=== PATIENT | female | born 1985 | race Two or more races ===

== ENCOUNTER 2020-12-25 08:13 | Day surgery (SDC) | payer OTHER ==
[~2020-12-25] VITALS: Ht 154.9 cm; Wt 97.0 kg
[~2020-12-25 08:13] MED LIST: HYDROmorphone 2 MG/ML VIAL IVP PRN; IV RINGERS,LACTATED 1000ML 1,000 ML IV SCH; PROCHLORPERAZINE 10 MG/2 ML VIAL. IVP PRN; THRIVE VITAMINS PO; fentaNYL PF VIAL 100 MCG/2 ML VIAL IVP PRN
[2020-12-25] MEDS ORDERED: PROPOFOL 10 MG/ML (20ML) VIAL. IV ONE ×2 (08:27→09:42)
[2020-12-25] MEDS ORDERED: KETOROLAC 30 MG/ML VIAL. ONE (08:27)
[2020-12-25] MEDS ORDERED: LIDOCAINE 1% PF 5 ML VIAL. ONE (08:27)
[2020-12-25] MEDS ORDERED: ONDANSETRON PF 4 MG/2 ML VIAL. ONE (08:27)
[2020-12-25] MEDS ORDERED: DEXAMETHASONE SOD PHOS 4 MG/ML VIAL ONE (08:27)
[2020-12-25] MEDS ORDERED: ROCURONIUM 50 MG/5 ML VIAL. ONE (08:28)
[2020-12-25] MEDS ORDERED: GLYCOPYRROLATE 1 MG/5 ML VIAL. ONE (08:28)
[2020-12-25] MEDS ORDERED: MIDAZOLAM HCL/PF 2 MG/2 ML VIAL. ONE (08:28)
[2020-12-25] MEDS ORDERED: fentaNYL PF VIAL 100 MCG/2 ML VIAL ONE (08:28)
[2020-12-25] MEDS ORDERED: NEOSTIGMINE METHYLSULFATE 5 MG/5 ML SYRINGE. ONE (08:28)
[2020-12-25 08:42] VITALS: BP 133/68
[2020-12-25] MEDS ORDERED: BUPIVACAINE-EPI 0.25%-1:200000 MPF 30 ML VIAL. ONE (08:53)
--- NOTE | 2020-12-25 09:55 | PDOC ---
BRIEF OPERATIVE NOTE Date: Dec 25, 2020 Pre-Op Diagnosis Sterilization Post-Op Diagnosis Same Procedure Performed [facility] BTL via deysi. salpingectomy Surgeon Dr. Peters Production Officer [employer]: Kristina Anesthesia Type: General Blood Loss 5 ml Specimens Obtained deysi. fallopian tubes Findings nml size uterus, nml fallopian tubes and ovaries deysi. Complications none Operative Note see dictation EVON PETERS Jr, MD Dec 25, 2020 09:55
[2020-12-25] MEDS ORDERED: OXYC1TAB15 PO (09:57)
--- NOTE | 2020-12-25 09:58 | DISCH ---
DISCHARGE INSTRUCTIONS Condition on Discharge Condition on Discharge: Stable Activity After Discharge Activity Instructions for Disc: Activity as tolerated Lifting Instructions after Dis: No heavy lifting Driving Instructions after Dis: Do not drive today Diet after Discharge Diet after Discharge: Regular Contacting the DRJose Rafael after DC Call your doctor for: Concerns you may have Follow-Up Follow up with: Dr. Peters in 1 week. EVON PETERS Jr, MD Dec 25, 2020 09:58
[2020-12-25] MEDS ORDERED: PROCHLORPERAZINE 10 MG/2 ML VIAL. ONE (10:05)
--- NOTE | 2020-12-25 10:08 | OP ---
DATE OF SURGERY: 12/25/2020 PREOPERATIVE DIAGNOSIS: Sterilization. POSTOPERATIVE DIAGNOSIS: Sterilization. PROCEDURE: Laparoscopic bilateral tubal ligation via bilateral salpingectomy. SURGEON: Kings Peters MD. DIPPER CLOCK [employer] WATCH HANDS: Kristina. ANESTHESIA: GETA. ESTIMATED BLOOD LOSS: 5 mL. COMPLICATIONS: None. FINDINGS: Normal size uterus, normal fallopian tubes and ovaries bilaterally. SUMMARY: A 35-year-old female who desired permanent sterilization. She was counseled on the risks, benefits and expectations as well as failure rate of bilateral tubal ligation and voiced clear understanding to proceed. DESCRIPTION OF PROCEDURE: The patient was taken to surgery suite and placed in dorsal lithotomy position, was prepped with Betadine solution for vaginal prep and ChloraPrep for abdominal prep. After adequate anesthesia, bivalve speculum was placed vaginally. Anterior lip of the cervix grasped with single tooth tenaculum. Uterine acorn manipulator was then placed. The bivalve speculum was removed. Attention was now placed on the abdomen where a small transverse skin incision was made just below the umbilicus. The Veress needle was then placed through the infraumbilical incision site. The abdomen was allowed to insufflate up to 1-1/2 liters CO2 gas. Veress needle was then removed. A 5 mm trocar was placed. The scope was positioned. The uterus was normal size, normal fallopian tubes and ovaries bilaterally. Two additional incisions were made in the left lower quadrant in which a 5 mm trocar and an 8 mm trocar was placed. With aid of Valdez graspers and EnSeal device, the right fallopian tube was dissected away from the right adnexa. Same process took place with left adnexa. The pedicles were both hemostatic. The trocars were then removed under direct visualization. The abdomen was allowed to deflate as much as possible along with mechanical manipulation. The 3 skin incisions were reapproximated using 4-0 Vicryl suture in subcuticular manner. A 0.25% Marcaine with epinephrine was injected at each incision site. Uterine acorn manipulator and single tooth tenaculum were then removed. The patient tolerated the procedure well and was taken to recovery room in stable condition. Sponge and needle count correct x 3. TADEOP/NIS DR: VARUN/steph TID: [id number]
[2020-12-25] MEDS ORDERED: HYDROcodone/APAP 5/325MG 1 TAB TABLET PO ONE (10:15)
[2020-12-25] MEDS ORDERED: MORPHINE SULFATE 2 MG/ML INJ. ONE (10:16)
[2020-12-25] MEDS: MORPHINE SULFATE 2 MG/ML INJ. IVP PRN ×2 (10:17→10:27)
[2020-12-25 10:47] VITALS: BP 104/52
--- NOTE | 2020-12-26 16:11 | PATHOLOGY ---
[facility] Accession Number: [id number] . 01 Material submitted: . PART A: fallopian tube - RIGHT FALLOPIAN TUBE. Modifiers: right PART B: fallopian tube - LEFT FALLOPIAN TUBE. Modifiers: left . 01 Clinical history: . LAP WITH BLT STERILIZATION . 02 Diagnosis: A. Right salpingectomy: - Segment of fallopian tube confirmed. . B. Left salpingectomy: - Segment of fallopian tube confirmed, with paratubal cyst. (JPM:padmini; 12/26/2020) S 12/26/2020 1512 Local . 02 Electronically signed: . Brennan Rojas MD, Pathologist NPI- [id number] . 01 Gross description: . A. Fixative: Formalin Labeled: R fallopian tube Measurements: 3.8 cm in length by 0.5 cm in diameter Fimbriated: Yes External surface: Pale laughlin to light vera with paratubal cyst measuring 0.3 cm near fimbria Cut Surface: Pinpoint lumen . [employer] sections are submitted in cassette A1. . . B. Fixative: Formalin Labeled: Left fallopian tube Measurements: 4.4 cm in length by up to 0.6 cm in diameter Fimbriated: Yes External surface: Light laughlin to light vera with 2 paratubal cysts ranging from 0.3 to 0.7 cm near fimbria Cut Surface: Pinpoint lumen . [employer] sections are submitted in cassette B1. ([facility]; 12/25/2020) [facility] 12/25/2020 1701 Local . 02 Pathologist provided ICD-10: N83.8, Z30.2 . 02 CPT . 179709, [id number] Specimen Comment: A courtesy copy of this report has been sent to [phone] Specimen Comment: [id number] Specimen Comment: Report sent to / DR CASTELLON Performed at: [address] [facility], [place] [id number] MD Donaldo Fairbanks MD Phone: [phone] Performed at: 02 [facility] [address], [place] [id number] MD Brennan Rojas MD Phone: [phone]
== END 2020-12-25 11:15 | disposition home or self-care (01) ==
LOC: SURG 08:13
PROVIDERS: ATTEND Obstetrics & Gynecology
DX: Z30.2 Encounter for sterilization (principal); Z20.822 Contact with and (suspected) exposure to COVID-19; Z79.899 Other long term (current) drug therapy; Z98.890 Other specified postprocedural states
CPT/HCPCS: 58670; 81025; 87426; A4930; A6219; J0780; J1100; J1885; J2250; J2270; J2405; J2704; J2710; J3010; J3490